=== PATIENT | female | born 2000 | race Caucasian/White ===

== ENCOUNTER 2025-02-24 15:41 | Emergency (ER) | payer OTHER, MEDICAID ==
[~2025-02-24] VITALS: Ht 167.6 cm; Wt 59.0 kg
[2025-02-24 15:44] VITALS: O2SAT 100
[2025-02-24] MEDS: METHOCARBAMOL 750MG TABLET PO SCH (17:58)
[2025-02-24] MEDS: ACETAMINOPHEN 325MG TABLET PO ONE (17:58)
[2025-02-24] MEDS ORDERED: LIDO-53 TP (18:11)
[2025-02-24] MEDS ORDERED: IBUP-2028 MT (18:11)
[2025-02-24] MEDS ORDERED: METH-653 MT (18:11)
[2025-02-24 18:16] VITALS: BP 132/70; PULSE 88; RESP 17; TEMP 36.6; O2SAT 100
== END 2025-02-24 18:36 | disposition home or self-care (01) ==
LOC: ER 15:41
DX: S13.4XXA Sprain of ligaments of cervical spine, initial encounter (principal); V89.2XXA Person injured in unspecified motor-vehicle accident, traffic, initial encounter; Y93.89 Activity, other specified; Y92.410 Unspecified street and highway as the place of occurrence of the external cause; Y99.8 Other external cause status
CPT/HCPCS: 81025; 99284